=== PATIENT | male | born 2000 | race Caucasian/White ===

== ENCOUNTER 2020-07-20 01:50 | Emergency (ER) | payer BC ==
[2020-07-20 02:23] VITALS: BP 114/69; PULSE 72; TEMP 97.2; BMI 24.8
[2020-07-20] MEDS ORDERED: ACETAMINOPHEN 500 MG TABLET (FP) PO ONE (02:41)
[2020-07-20] MEDS ORDERED: ACETAMINOPHEN 325 MG TABLET (FP) ONE (03:08)
== END 2020-07-20 04:29 | disposition home or self-care (01) ==
LOC: JER 01:50
DX: S99.911A Unspecified injury of right ankle, initial encounter (principal); X50.9XXA Other and unspecified overexertion or strenuous movements or postures, initial encounter
CPT/HCPCS: 73610-TC-RT-FY; 73630-TC-RT-FY; 99283-25